=== PATIENT | female | born 1990 | race Asian ===

== ENCOUNTER 2020-11-14 13:15 | Emergency (ER) | payer OTHER ==
[~2020-11-14] VITALS: Ht 165.1 cm; Wt 59.0 kg
[2020-11-14 13:21] VITALS: BP 117/62
[2020-11-14] MEDS ORDERED: orphenadrine citrate 60mg/2ml inj. IM ONE (14:25)
[2020-11-14] MEDS ORDERED: ketorolac tromethamine 15mg/ml inj. IM ONE (14:25)
[2020-11-14] MEDS ORDERED: diazepam 5mg tablet PO ONE (14:50)
[2020-11-14] MEDS ORDERED: DIAZ2TAB PO (15:13)
[2020-11-14] MEDS ORDERED: IBUP-1984 PO (15:13)
[2020-11-14] MEDS ORDERED: ORPH100T2 PO (15:13)
== END 2020-11-14 15:23 | disposition home or self-care (01) ==
LOC: ER 13:16
DX: M54.12 Radiculopathy, cervical region (principal); M54.2 Cervicalgia; Z79.899 Other long term (current) drug therapy
CPT/HCPCS: 96372; 99283; J1885

== ENCOUNTER 2022-01-13 05:06 | Emergency (ER) | payer OTHER, MEDICAID ==
[~2022-01-13] VITALS: Ht 165.1 cm; Wt 63.6 kg
[~2022-01-13 05:06] MED LIST: DIAZ2TAB PO; ORPH100T2 PO
[2022-01-13 05:11] VITALS: BP 122/64
[2022-01-13 05:38] LABS: URINE HCG NEGATIVE (NEG)
[2022-01-13 05:59] LABS: CLARITY,URINE CLOUDY (Clear); COLOR,URINE BROWN (Yellow); GLUCOSE, URINE NEGATIVE (Neg); KETONES,URINE NEGATIVE (Neg); LEUKOCYTE ESTERASE ,URINE NEGATIVE (Neg); OCCULT BLOOD,URINE LARGE (Neg); PH,URINE 5.5 (4.8-8.0); PROTEIN,URINE 100 mg/dl (Neg); UROBILINOGEN,URINE 0.2 E.U/dL (0.2-1.0)
[2022-01-13 06:10] LABS: UA COLLECTION TYPE CLN CATCH MIDSTREAM
[2022-01-13 06:11] LABS: NITRITES, URINE NEGATIVE (Neg)
[2022-01-13 06:13] LABS: BACTERIA,URINE FEW /HPF (Neg); MUCUS STRANDS NONE SEEN /LPF (Neg); RBC,URINE TNTC /HPF (0-2); SQUAMOUS EPITHELIAL CELL,UR MODERATE /LPF (FEW); WBC,URINE 0-4 /HPF (0-4)
== END 2022-01-13 08:41 | disposition left against medical advice (07) ==
LOC: ER 05:06
DX: R10.9 Unspecified abdominal pain (principal); Z53.21 Procedure and treatment not carried out due to patient leaving prior to being seen by health care provider
CPT/HCPCS: 81001; 81025